=== PATIENT | male | born 1980 | race Caucasian/White ===

== ENCOUNTER 2021-10-20 09:52 | Inpatient (IN) | payer OTHER ==
[~2021-10-20] VITALS: Ht 182.9 cm; Wt 90.0 kg
[2021-10-20 12:36] LABS: COVID AG,FIA SOURCE NASAL SWAB
[2021-10-20 12:59] LABS: BASOPHILS % (AUTO) 0.6 % (0.0-2.0); EOSINOPHILS % (AUTO) 0.4 % (1.0-6.0); HEMATOCRIT 43.7 % (41-53); HEMOGLOBIN 15.1 g/dL (13.5-17.5); LYMPHOCYTES # (AUTO) 1.4 K/uL (1.0-4.8); LYMPHOCYTES % (AUTO) 29.6 % (22.0-44.0); MEAN CORPUSCULAR HEMOGLOBIN 30.8 pg (26.0-34.0); MEAN CORPUSCULAR HGB CONC 34.5 G/dL (31.0-37.0); MEAN CORPUSCULAR VOLUME 89 fL (80-100); MONOCYTES # (AUTO) 0.4 K/uL (0.1-1.0); MONOCYTES % (AUTO) 8.7 % (2.0-9.0); NEUTROPHILS # (AUTO) 2.8 K/uL (1.8-7.7); NEUTROPHILS % (AUTO) 60.7 % (40.0-70.0); PLATELET COUNT (AUTO) 223 K/uL (150-450); RED CELL DISTRIBUTION WIDTH 13.5 % (11.5-14.5)
[2021-10-20 13:14] LABS: PROTHROMBIN TIME 10.7 SEC (9.4-11.6)
[2021-10-20 13:21] LABS: ANION GAP 9 mmol/L (8-16); CALCIUM, TOTAL 9.4 mg/dL (8.8-10.5); CARBON DIOXIDE 27 mmol/L (22-29); CHLORIDE 102 mmol/L (98-107); CREATININE 0.87 mg/dL (0.60-1.30); GLOMERULAR FILTR. RATE CALC > 60 mL/min (>60); GLUCOSE,RANDOM 103 mg/dL (70-110); POTASSIUM 3.7 mmol/L (3.5-5.1); SODIUM SERUM 138 mmol/L (136-145); UREA NITROGEN, BLOOD 13 mg/dL (7-18)
[2021-10-20 13:26] LABS: ALANINE AMINOTRANSFERASE 60 U/L (12-78); ALBUMIN 3.9 g/dL (3.4-5.0); ALKALINE PHOSPHATASE 58 U/L (46-116); ASPARTATE AMINOTRANSFERASE 26 U/L (15-37); BILIRUBIN,TOTAL 0.5 mg/dL (0.1-1.0); TOTAL PROTEIN, SERUM 7.5 g/dL (6.4-8.2)
[2021-10-20 15:08] VITALS: BP 136/87
[2021-10-20] MEDS ORDERED: ACETAMINOPHEN 325 MG TABLET PO PRN (16:00)
[2021-10-20] MEDS ORDERED: MORPHINE SULFATE 2 MG/ML SYRINGE IVP PRN (16:00)
[2021-10-20] MEDS ORDERED: HYDROCODONE/ACETAMINOPHEN 5-325 MG TABLET PO PRN (16:00)
[2021-10-20] MEDS ORDERED: BISACODYL 10 MG RECTAL RECTAL SUPPOSITORY PR PRN (16:00)
[2021-10-20] MEDS ORDERED: ZOLPIDEM TARTRATE 5 MG TABLET PO PRN (16:00)
[2021-10-20] MEDS ORDERED: MAGNESIUM HYDROXIDE SUSPENSION 30 ML UDCUP PO PRN (16:00)
[2021-10-20] MEDS ORDERED: ONDANSETRON HCL 4 MG/2 ML VIAL IVP PRN (16:00)
[2021-10-20] MEDS: HEPARIN SODIUM,PORCINE 5,000 UNITS/ML VIAL SQ SCH (16:27)
[2021-10-20] MEDS: ASCORBIC ACID 500 MG TABLET PO SCH ×2 (16:32→21:04)
[2021-10-20 17:26] LABS: ABG A-A DIFF O2 19.9 mmHg (10-20.0); ABG BASE EXCESS 1.9 mmol/L (-2.0-3.0); ABG CARBOXYHEMOGLOBIN 0.7 % (0.0-1.5); ABG HCO3 26.3 mmol/L (22.0-26.0); ABG METHEMOGLOBIN 0.3 % (0.0-1.5); ABG OXYGEN CONTENT 20.9 mL/dL (15.0-23.0); ABG OXYGEN SATURATION 96.6 % (95.0-98.0); ABG OXYHEMOGLOBIN 95.6 % (94.0-100.0); ABG PCO2 37 mmHg (35-45); ABG PH 7.457 (7.35-7.450); ABG TOTAL HEMOGLOBIN 15.5 G/dL (12.0-18.0); O2 DEVICE,BLOOD GAS ROOM AIR (ROOM AIR); PO2, ARTERIAL BG 85.2 mmHg (88.0-96.0); SITE, BLOOD GAS LFT RADIAL; SOURCE, BLOOD GAS ARTERIAL; TEMPERATURE, FAHRENHEIT, BG 98.6 FAHREN (96.0-98.6)
[2021-10-20 20:58] VITALS: BP 137/69
[2021-10-20] MEDS: ZINC SULFATE 220 MG CAPSULE PO SCH (21:04)
[2021-10-20] MEDS: DOCUSATE SODIUM 100 MG CAPSULE PO SCH (21:04)
[2021-10-20] MEDS: THIAMINE 100 MG/ML 2 ML VIAL IVP SCH (21:04)
[2021-10-21] MEDS: HEPARIN SODIUM,PORCINE 5,000 UNITS/ML VIAL SQ SCH ×4 (00:12→23:40)
[2021-10-21 05:27] VITALS: BP 136/74
[2021-10-21 07:50] VITALS: BP 123/71
[2021-10-21] MEDS: PANTOPRAZOLE SODIUM 40 MG DR TABLET PO SCH (08:55)
[2021-10-21] MEDS: THIAMINE 100 MG/ML 2 ML VIAL IVP SCH (08:55)
[2021-10-21] MEDS: DOCUSATE SODIUM 100 MG CAPSULE PO SCH ×2 (08:55→20:20)
[2021-10-21] MEDS: ASCORBIC ACID 500 MG TABLET PO SCH (08:55)
[2021-10-21] MEDS: ZINC SULFATE 220 MG CAPSULE PO SCH (08:55)
[2021-10-21] MEDS ORDERED: AZITHROMYCIN 500 MG TABLET PO SCH (09:00)
[2021-10-21 16:23] VITALS: BP 129/77
[2021-10-21 20:26] VITALS: BP 137/76
[2021-10-22 04:10] VITALS: BP 129/75
[2021-10-22 07:31] VITALS: BP 122/77
[2021-10-22] MEDS: HEPARIN SODIUM,PORCINE 5,000 UNITS/ML VIAL SQ SCH (08:45)
[2021-10-22] MEDS: DOCUSATE SODIUM 100 MG CAPSULE PO SCH (08:45)
[2021-10-22] MEDS: PANTOPRAZOLE SODIUM 40 MG DR TABLET PO SCH (08:45)
[2021-10-22] MEDS ORDERED: MULTIVITAMINS WITH MINERALS, THERAPEUTIC TABLET PO SCH (09:00)
[2021-10-22] MEDS ORDERED: MAGN-169 PO (10:06)
[2021-10-22] MEDS ORDERED: ACET-2247 PO (10:06)
== END 2021-10-22 12:30 | DRG 179 ==
LOC: EMS 09:52 → 6S 12:52
PROVIDERS: ADMIT Internal Medicine; ATTEND Internal Medicine
DX: U07.1 COVID-19 (principal); I10 Essential (primary) hypertension
CPT/HCPCS: 36600; 71045; 80053; 82805; 85025; 85610; 85730; 93005; 99285; J1644; J3411; Q9967; 36415-L1; 36415-TC